=== PATIENT | female | born 1960 | race African-American/Black ===

== ENCOUNTER 2020-08-16 12:41 | Outpatient (CLI) | payer OTHER | END 2020-08-16 12:42 | disposition home or self-care (01) | LOC: CSHCT 12:41 | PROVIDERS: ATTEND Neurological Surgery | DX: S24.101A Unspecified injury at T1 level of thoracic spinal cord, initial encounter (principal); C90.00 Multiple myeloma not having achieved remission; M48.56XA Collapsed vertebra, not elsewhere classified, lumbar region, initial encounter for fracture | CPT/HCPCS: 71260; 72193; 74160; 74177; 82565 ==